=== PATIENT | male | born 1945 | race Caucasian/White ===

== ENCOUNTER → 2019-11-04 | Outpatient (CLI) | payer OTHER ==
[~2019-11-04] MED LIST: ASPIR 8181 MG PO; ATORVASTATIN CA20 MG PO; CRESTOR40 MG PO; HYDROCHLOROTHIA25 M1 PO; HYDROCODON-ACE1 EAC7 PO; LEVAQUIN 500 M500 MG PO; LEVOTHYROXIN0.112 M1 PO; MAVIK4 MG PO; VERAPAMIL ER240 MG PO; ZETIA10 MG
== END ==
LOC: M.RAD 13:50
PROVIDERS: ATTEND Family Medicine
DX: M16.12 Unilateral primary osteoarthritis, left hip (principal); M85.88 Other specified disorders of bone density and structure, other site